=== PATIENT | male | born 1990 | race African-American/Black ===

== ENCOUNTER 2016-09-05 15:21 | Emergency (ER) | payer OTHER ==
[~2016-09-05] VITALS: Ht 175.3 cm; Wt 76.0 kg
[~2016-09-05 15:21] MED LIST: DOXY100T PO
[2016-09-05 15:22] VITALS: BP 159/90; PULSE 98; RESP 16; TEMP 98.1; O2SAT 96
[2016-09-05 16:40] VITALS: BP 145/99; PULSE 87; RESP 19; O2SAT 98
[2016-09-05 17:00] VITALS: BP 148/90; PULSE 80; RESP 17; O2SAT 99
[2016-09-05 17:02] LABS: BASOPHIL % 0.4 % (0.0-2.0); EOSINOPHIL # 0.1 TH/MM3 (0-0.4); EOSINOPHIL % 1.3 % (0.0-4.0); HEMO FLAGS DIFF FINAL; LYMPH % 26.1 % (9.0-44.0); LYMPHOCYTE # 2.5 TH/MM3 (1.0-4.8); MEAN CELL VOLUME 87.4 FL (80.0-100.0); MEAN CORPUSCULAR HEMOGLOBIN 29.5 PG (27.0-34.0); MEAN CORPUSCULAR HGB CONC 33.8 % (32.0-36.0); MONO % 8.7 % (0.0-8.0); NEUT % 63.5 % (16.0-70.0); PLATELET COUNT 225 TH/MM3 (150-450); RED CELL DISTRIBUTION WIDTH 12.2 % (11.6-17.2); WHITE BLOOD COUNT 9.4 TH/MM3 (4.0-11.0)
--- NOTE | 2016-09-05 17:06 | RADRPT ---
EXAM DATE/TIME: 09/05/2016 16:51 [facility] COMPARISON: No previous studies available for comparison. INDICATIONS : Shortness of breath and elevated heart rate. MEDICAL HISTORY : Asthma. SURGICAL HISTORY : None. ENCOUNTER: Initial ACUITY: 1 week PAIN SCORE: 0/10 LOCATION: chest FINDINGS: A single view of the chest demonstrates the lungs to be symmetrically aerated without evidence of mas s, infiltrate or effusion. The cardiomediastinal contours are unremarkable. Osseous structures are intact. CONCLUSION: No acute disease. Derrick Bean MD on September 05, 2016 at 17:04 Board Certified Radiologist. This report was verified electronically.
--- NOTE | 2016-09-05 17:17 | PD ---
HPI Chief Complaint: Dizziness Time Seen by Provider: 17:08 Travel History International Travel<30 days: No Contact w/Intl Traveler<30days: No Traveled to known affect area: No History of Present Illness HPI 25-year-old male that presents to the ED for evaluation of dizziness and chest discomfort. Per patient she's had this twice. Per patient he had this about a week ago and episode where he was living forward and he felt dizzy and had some severe is comfortable his chest and felt like his heart was palpitating. At the time he also had some shortness of breath and numbness and tingling to his arms and legs. Per patient it lasted a couple of minutes and then it went away with no residual symptoms. Per patient he had another episode on . Per patient he hasn't had one today. Per patient he was concerned because they seem to be coming more and off them. Per patient he has no history of heart disease. He does tell me that he has a history of substance abuse including ecstasy. He denies using anything else. Per patient his been using ecstasy recreationally and he is concerned that this might be causing something to him. He denies any history of psychiatric illness. No allergies to medication. No symptoms today. PFSH Past Medical History Asthma: Yes Diminished Hearing: No Respiratory: Yes (CHILDHOOD ASTHMA) Past Surgical History Oral Surgery: Yes (jaw wired after it was fx) Pacemaker: No Other Surgery: No Social History Alcohol Use: Yes Tobacco Use: Yes (5-6 cigarettes daily) Substance Use: Yes Allergies-Medications (Allergen,Severity, Reaction): Coded Allergies: No Known Allergies (Unverified , 09/05/16) Reported Meds & Prescriptions Reported Meds & Active Scripts Active No Active Prescriptions or Reported Medications Review of Systems General / Constitutional: No: Fever, Chills, Weight Gain, Weight Loss, Other Eyes: No: Diploplia, Blurred Vision, Photophobia, Drainage, Redness, Foreign Body Sensation, Pain, Tearing, Blind Spots, Visual changes, Blindness, Other HENT: No: Headaches, Vertigo, Lightheadedness, Sore Throat, Rhinitis, Rhinorrhea, Congestion, Nosebleed, Neck Stiffness, Neck Pain, Masses, Gingival Bleeding, Dental Difficulties, Ear Discharge, Earache, Other Cardiovascular: Positive: Chest Pain or Discomfort, Palpitations, No: Irregular Rhythm, Tachycardia, Diaphoresis, Syncope, Dyspnea on exertion, Varicosities, Edema, Cyanosis, Varicosities, Phlebitis, Claudication, Other Respiratory: Positive: Shortness of Breath, No: Cough, Wheezing, Sneezing, Orthopnea, Hemoptysis, Stridor, Night Sweats, Pleuritic Pain, Other Gastrointestinal: No: Nausea, Vomiting, Diarrhea, Abdominal Pain, Hematemesis, Hematochezia, Constipation, Changes in Bowel Habits, Indigestion, Dysphagia, Loss of Appetite, Other Genitourinary: No: Urgency, Frequency, Dysuria, Nocturia, Hematuria, Decreased Urinary Output, Oliguria, Hesitancy, Dribbling, Incontinence, Pelvic Pain, Flank Pain, Dyspareunia, Discharge, Dysmenorrhea, Menorrhagia, Metorrhagia, Vaginal Bleeding, Other Musculoskeletal: No: Myalgias, Arthralgias, Limited ROM, Weakness, Cramping, Edema, Pain, Atrophy, Other Skin: No Rash, No Itching, No Dryness, No Lumps, No Hives, No Change in Pigmentation, No Change in nails, No Alopecia, No Lesions, No Breast Lumps, No Breast Tenderness, No Breast Swelling, No Other Neurologic: No: Weakness, Dizziness, Syncope, Focal Abnormalities, Coordination Problem, Tremor, Ataxia, Headache, Change in Mentation, Slurred Speech, Paresthesia, Incontinence, Seizures, Sensory Disturbance, Other Psychiatric: Positive: Anxiety, Substance Abuse, No: Depression, Suicidal Ideations, Disorder of Thought, Mood Disorder, Homicidal Ideation, Other Endocrine: No: Heat Intolerance, Cold Intolerance, Polyuria, Polydipsia, Other Hematologic/Lymphatic: No: Easy Bruising, Lymph Node Enlargement, Other Physical Exam Narrative GENERAL: SKIN: Warm and dry. HEAD: Atraumatic. Normocephalic. EYES: Pupils equal and round. No scleral icterus. No injection or drainage. ENT: No nasal bleeding or discharge. Mucous membranes pink and moist. Tongue is midline. No uvula deviation. NECK: Trachea midline. No JVD. CARDIOVASCULAR: Regular rate and rhythm. No murmurs, S3, S4. RESPIRATORY: No accessory muscle use. Clear to auscultation. Breath sounds equal bilaterally. GASTROINTESTINAL: Abdomen soft, non-tender, nondistended. Hepatic and splenic margins not palpable. MUSCULOSKELETAL: Extremities without clubbing, cyanosis, or edema. No obvious deformities. Full range of motion of the upper and lower extremities bilaterally. 2+ pulses bilaterally. NEUROLOGICAL: Awake and alert. No obvious cranial nerve deficits. Motor grossly within normal limits. Five out of 5 muscle strength in the arms and legs. Normal speech. PSYCHIATRIC: Appropriate mood and affect; insight and judgment normal. Data Data Last Documented VS Vital Signs Date Time Temp Pulse Resp B/P Pulse Ox O2 Delivery O2 Flow Rate FiO2 09/05/16 16:40 87 19 145/99 98 Room Air 09/05/16 15:22 98.1 Orders Electrocardiogram (09/05/16 16:14) Complete Blood Count With Diff (09/05/16 16:14) Basic Metabolic Panel (Bmp) (09/05/16 16:14) Magnesium (Mg) (09/05/16 16:14) Chest, Single Ap (09/05/16 16:14) Drug Screen, Random Urine (09/05/16 16:14) Labs Laboratory Tests Test 09/05/16 16:20 White Blood Count 9.4 TH/MM3 Red Blood Count 4.70 MIL/MM3 Hemoglobin 13.9 GM/DL Hematocrit 41.0 % Mean Corpuscular Volume 87.4 FL Mean Corpuscular Hemoglobin 29.5 PG Mean Corpuscular Hemoglobin 33.8 % Concent Red Cell Distribution Width 12.2 % Platelet Count 225 TH/MM3 Mean Platelet Volume 8.2 FL Neutrophils (%) (Auto) 63.5 % Lymphocytes (%) (Auto) 26.1 % Monocytes (%) (Auto) 8.7 % Eosinophils (%) (Auto) 1.3 % Basophils (%) (Auto) 0.4 % Neutrophils # (Auto) 6.0 TH/MM3 Lymphocytes # (Auto) 2.5 TH/MM3 Monocytes # (Auto) 0.8 TH/MM3 Eosinophils # (Auto) 0.1 TH/MM3 Basophils # (Auto) 0.0 TH/MM3 CBC Comment DIFF FINAL Differential Comment Sodium Level 138 MEQ/L Potassium Level 3.6 MEQ/L Chloride Level 102 MEQ/L Carbon Dioxide Level 27.2 MEQ/L Anion Gap 9 MEQ/L Blood Urea Nitrogen 7 MG/DL Creatinine 0.99 MG/DL Estimat Glomerular Filtration 113 ML/MIN Rate Random Glucose 81 MG/DL Calcium Level 9.3 MG/DL Magnesium Level 2.0 MG/DL MDM Medical Decision Making Medical Screen Exam Complete: Yes Emergency Medical Condition: Yes Medical Record Reviewed: Yes Interpretation(s) CBC & BMP Diagram 09/05/16 16:20 EKG shows sinus rhythm with no sign of acute ischemia or arrhythmia read by me and attending. Last Impressions Chest X-Ray 09/05/16 1614 Signed Impressions: Service Date/Time: Wednesday, September 05, 2016 16:51 - CONCLUSION: No acute disease. Derrick Bean MD BMP Diagram 09/05/16 16:20 Differential Diagnosis Chest pain versus anxiety versus dizziness versus normal exam versus vertigo versus substance abuse versus medication side effect Narrative Course 25-year-old male that presents to the ED for evaluation of chest pain and dizziness. Patient was properly examined and was found to have signs and symptoms consistent what appears to be anxiety. Patient has no symptoms today. Patient did attest that he has been taking ecstasy last and using yesterday and he seems to the symptoms have been worsening since use of this. He denies any other drug abuse. At this time I will do labs and EKG to make sure there is no sign of acute disease. EKG and labs were essentially unremarkable. Patient was reassured. From history and physical this appears to be panic attacks. Patient will be given a prescription for Vistaril. Told to stop using ecstasy secondary to medical problems that it can happen. See ED worsening symptoms. Diagnosis Primary Impression: Anxiety Patient Instructions: General Instructions Additional Instructions: Take medication as prescribed. Discontinue substance abuse. See ED for worsening symptoms. Follow with PCP. Med/Other Pt SpecificInfo: Prescription(s) given Scripts Hydroxyzine Pamoate (Vistaril)50 Mg Cap50 Mg PO QID PRN (ANXIETY) #20 CAP Ref 0 Prov:Heath Sims MD 09/05/16 Disposition: 01 DISCHARGE HOME Condition: Stable Jay Burnett Sep 05, 2016 17:17
[2016-09-05 17:29] LABS: BICARBONATE 27.2 MEQ/L (21.0-32.0); POTASSIUM 3.6 MEQ/L (3.5-5.1)
[2016-09-05] MEDS ORDERED: VIST50CA PO (17:41)
[2016-09-05 17:46] LABS: AMPHETAMINE, URINE NEG (NEG); BARBITURATES, URINE NEG (NEG); COCAINE, URINE NEG (NEG)
[2016-09-05 18:00] VITALS: BP 153/90; PULSE 80; RESP 14; O2SAT 99
--- NOTE | 2016-09-05 20:39 | EKG ---
Date Performed: 09/05/2016 Time Performed: 16:22:38 PTAGE: 25 years EKG: Sinus rhythm NORMAL ECG NO PREVIOUS TRACING DOCTOR: Kolton Kunz Interpretating Date/Time 09/05/2016 20:39:03
== END 2016-09-05 18:52 | disposition home or self-care (01) ==
LOC: NEPE 15:21
DX: F41.9 Anxiety disorder, unspecified (principal); R42 Dizziness and giddiness; R07.89 Other chest pain; Z72.0 Tobacco use; Z87.09 Personal history of other diseases of the respiratory system
CPT/HCPCS: 71010; 80048; 80307; 83735; 85025; 93005

== ENCOUNTER 2016-10-14 03:47 | Emergency (ER) | payer OTHER ==
[~2016-10-14] VITALS: Ht 172.7 cm; Wt 77.0 kg
[~2016-10-14 03:47] MED LIST changes: -DOXY100T PO; +VIST50CA PO
[2016-10-14 03:49] VITALS: BP 139/86; PULSE 86; RESP 18; TEMP 97.6; O2SAT 99
--- NOTE | 2016-10-14 04:46 | RADRPT ---
EXAM DATE/TIME: 10/14/2016 04:33 [facility] COMPARISON: No previous studies available for comparison. INDICATIONS : Woke up from sleeping on left shoulder pain on lateral shoulder. MEDICAL HISTORY : None. SURGICAL HISTORY : None. ENCOUNTER: Initial ACUITY: 1 day PAIN SCORE: 10/10 LOCATION: Left shoulder FINDINGS: Multiple view examination of the left shoulder demonstrates no evidence of fracture or dislocation. The glenohumeral and acromioclavicular joints are maintained. There is normal range of motion betwee n internal and external rotation. Bony mineralization is normal. CONCLUSION: Unremarkable examination of the left shoulder. Enoc Loco Jr., MD on October 14, 2016 at 4:44 Board Certified Radiologist. This report was verified electronically.
[2016-10-14] MEDS ORDERED: KETOROLAC TROMETHAMINE 60 MG/2 ML (IM) VIAL IM ONE (05:00)
[2016-10-14] MEDS ORDERED: NAPR1TAB34 PO (05:09)
[2016-10-14] MEDS ORDERED: CYCL5TAB PO (05:09)
--- NOTE | 2016-10-14 05:09 | PD ---
HPI Chief Complaint: Musculoskeletal Complaint Time Seen by Provider: 04:09 Travel History International Travel<30 days: No Contact w/Intl Traveler<30days: No Traveled to known affect area: No History of Present Illness HPI The patient is a 25 year old male who presents to the [facility] emergency department with a history of left shoulder pain that began suddenly when he rolled over in bed. He reports that in high school playing football he dislocated the left shoulder and is concerned that he may have done this again. The patient reports having pain that is reportedly a 10 out of 10 in severity. He denies any other injury. He denies having any other symptoms associated with this. The patient denies any recent fevers, cough, congestion, neck pain, chest pain, shortness of breath, abdominal pain, vomiting, diarrhea, urinary symptoms, or neurologic symptoms. [facility] Past Medical History Narrative Medical The patient has a prior history of childhood asthma. Asthma: Yes Diminished Hearing: No Respiratory: Yes (CHILDHOOD ASTHMA) Tetanus Vaccination: < 5 Years Influenza Vaccination: No Past Surgical History Narrative Surgical The patient's past surgical history is significant for wiring of his jaw related to a fracture. Oral Surgery: Yes (jaw wired after it was fx) Pacemaker: No Other Surgery: No Social History Alcohol Use: Yes (BEER DAILY) Tobacco Use: Yes (5-6 cigarettes daily) Substance Use: Yes Allergies-Medications (Allergen,Severity, Reaction): Coded Allergies: No Known Allergies (Unverified , 10/14/16) Reported Meds & Prescriptions Reported Meds & Active Scripts Active No Active Prescriptions or Reported Medications Review of Systems Except as stated in HPI: all other systems reviewed are Neg General / Constitutional: No: Fever Eyes: No: Visual changes HENT: No: Headaches Cardiovascular: No: Chest Pain or Discomfort Respiratory: No: Shortness of Breath Gastrointestinal: No: Abdominal Pain Genitourinary: No: Dysuria Musculoskeletal: Positive: Arthralgias, Pain Skin: No Rash Neurologic: No: Weakness Psychiatric: No: Depression Endocrine: No: Polydipsia Hematologic/Lymphatic: No: Easy Bruising Physical Exam Narrative General: The patient is well-developed well-nourished male in no acute distress. Head and Neck exam: Head is normocephalic atraumatic. Eyes: EOMI, pupils are equal round and reactive to light. Nose: Midline septum with pink mucous membranes Mouth: Dentition unremarkable. Moist mucus membranes. Posterior oropharynx is not erythematous. No tonsillar hypertrophy. Uvula midline. Airway patent. Neck: No palpable lymphadenopathy. No nuchal rigidity. No thyromegaly. Cardiovascular: Regular rate and rhythm without murmurs, gallops, or rubs. Lungs: Clear to auscultation bilaterally. No wheezes, rhonchi, or rales. Abdomen: Soft, without tenderness to palpation in all 4 quadrants of the abdomen. No guarding, rebound, or rigidity. Normal bowel sounds are audible. Extremities: No clubbing, cyanosis, or edema. 2+ pulses in all 4 extremities. The area of interest is the left shoulder, the patient is holding the left arm adducted across his waist and flexed at the elbow. The patient reports having intermittent spasms of the left deltoid. The patient has no visible deformity. No loss of fullness in the glenoid fossa. The patient however has decreased range of motion on exam, with reported pain. Patient has no elbow pain. No wrist pain. The patient has intact sensation over all fingertips. Less than 3 second capillary refill. The patient has no crepitus or deformity of the left arm. Back: No spinous process tenderness to palpation. No costovertebral angle tenderness to palpation. Neurologic Exam: Grossly nonfocal. Skin Exam: No rash noted. Intact skin that is warm and dry. Data Data Last Documented VS Vital Signs Date Time Temp Pulse Resp B/P Pulse Ox O2 Delivery O2 Flow Rate FiO2 10/14/16 03:49 97.6 86 18 139/86 99 Room Air Orders Shoulder, Complete (>2vws) (10/14/16 04:09) Ketorolac Inj (Toradol Inj) (10/14/16 05:00) Ice/Cold Pack (10/14/16 04:52) Splint Or Brace Apply/Monitor (10/14/16 04:52) [facility] Medical Decision Making Medical Screen Exam Complete: Yes Emergency Medical Condition: Yes Medical Record Reviewed: Yes Interpretation(s) Last Impressions Shoulder X-Ray 10/14/16 7674 Signed Impressions: Service Date/Time: Friday, October 14, 2016 04:33 - CONCLUSION: Unremarkable examination of the left shoulder. Enoc Loco Jr., MD Differential Diagnosis Left shoulder dislocation, versus before meals separation, versus rotator cuff injury, versus arthritis, versus fracture Narrative Course During the course of the patients emergency department visit, the patients history, examination, and differential diagnosis were reviewed with the patient. The patient had an x-ray of the left shoulder ordered. The patient was provided Toradol 60 mg IM 1. Radiology studies were reviewed and remarkable for an x-ray that shows no evidence of fracture or dislocation. The patient will be placed in a shoulder sling. The patient will be given a prescription for Naprosyn and Flexeril. The patient was given the name of the orthopedic physician for follow-up if his symptoms continue. The patient was given the name of Dr. Edmond for follow-up. The patient is resting comfortably and feels better, is alert and in no distress. The patients results and examination findings were discussed with the patient. The repeat examination is unremarkable and benign. The history, exam, diagnostic testing, and current condition do not suggest any significant pathology to warrant further testing, continued ED treatment, admission, or surgical evaluation at this point. The vital signs have been stable. The patient does not have uncontrollable pain, intractable vomiting, or other significant symptoms. The patient's condition is stable and appropriate for discharge. The patient will pursue further outpatient evaluation with a primary care physician or other designated or consulting physician as indicated in the discharge instructions. The patient expressed understanding and was agreeable with this plan. Diagnosis Primary Impression: Left shoulder pain Qualified Code: M25.512 - Acute pain of left shoulder Referrals: Cristian White Jr., MD 1 week Departure Forms: Tests/Procedures Med/Other Pt SpecificInfo: Prescription(s) given Scripts Cyclobenzaprine (Flexeril)5 Mg Tab5 Mg PO TID PRN (SPASM) #15 TAB Ref 0 Prov:Lori Monk MD 10/14/[address] (Naproxen EC)500 Mg [id number] Mg PO BID PRN (PAIN GREATER THAN 5) # 10 TAB Ref 0 Prov:Lori Monk MD 10/14/16 Disposition: 01 DISCHARGE HOME Condition: Stable Lori Monk MD Oct 14, 2016 05:09
== END 2016-10-14 05:18 | disposition home or self-care (01) ==
LOC: NEPE 03:47
DX: M25.512 Pain in left shoulder (principal); M62.838 Other muscle spasm; Z72.0 Tobacco use; Z87.09 Personal history of other diseases of the respiratory system
CPT/HCPCS: 73030; 96372; 99283; J1885